=== PATIENT | female | born 1945 | race Caucasian/White ===

== ENCOUNTER 2018-02-07 13:08 | Inpatient (IN) | payer MEDICARE ==
[~2018-02-07] VITALS: Ht 172.7 cm; Wt 99.0 kg
[~2018-02-07 13:08] MED LIST: ANTI-DIARRHEAL PO; ASCO500 PO; ASPI81TA82 PO; CALCTAB32 PO; CIPR500T2 PO; FEXO180T PO; FLUC200T63 PO; GLIM2TAB PO; GLUCTAB OR; METR-1 PO; MONT10TA2 PO; PROT40TA PO; TAB-TAB PO; TRIL135C PO; VITA20003 PO
[2018-02-07 13:14] VITALS: BP 139/69; PULSE 89; RESP 16; TEMP 98.7; O2SAT 99
--- NOTE | 2018-02-07 13:39 | PD ---
HPI Chief Complaint: Injury Time Seen by Provider: 13:23 Travel History International Travel<30 days: No Contact w/Intl Traveler<30days: No Traveled to known affect area: No History of Present Illness HPI 72yo F with PMH of DM and ulcerative colitis presents to the ED with c/o left knee pain and right eyelid swelling and pain s/p trip and fall at 6am today. Pt was walking outside and it was dark and trip on uneven pavement landing first on her left knee and then hitting her right face on the floor. Denies any LOC, visual changes, chest pain, sob, n/v, abdominal pain, focal weakness or numbness. Up to date on tetanus. Denies any anticoagulation. PFSH Past Medical History Anxiety: No Depression: Yes Cancer: No Cardiovascular Problems: No Chemotherapy: No Diabetes: Yes (type 2) Endocrine: Yes Genitourinary: No Hepatitis: No Hiatal Hernia: No Immune Disorder: No Musculoskeletal: No Neurologic: No Psychiatric: Yes Reproductive: No Respiratory: No Radiation Therapy: No Thyroid Disease: No ?: Not Past Surgical History Abdominal Surgery: Yes (COLECTOMY 2000) Eye Surgery: Yes (CATARACT LENS IMPLANTS BOTH EYES) Pacemaker: No Other Surgery: Yes Social History Alcohol Use: Yes (RARELY) Tobacco Use: No Substance Use: No Allergies-Medications (Allergen,Severity, Reaction): Coded Allergies: adhesive (Unverified Allergy, Severe, Rash, 02/07/18) ADHESIVE TAPE ALLERGY, USE PAPER TAPE ONLY Reported Meds & Prescriptions Reported Meds & Active Scripts Active Reported Metformin (Metformin HCl) 1,000 Mg Tab 1,000 Mg PO BIDPC Trulicity Inj (Dulaglutide Inj) 0.75 Mg/0.5 Ml Pen 0.75 Mg SQ Q7D Januvia (Sitagliptin Phosphate) 25 Mg Tab 25 Mg PO DAILY Review of Systems Except as stated in HPI: all other systems reviewed are Neg Physical Exam Narrative GENERAL: 72yo F in mild distress. SKIN: Focused skin assessment warm/dry. HEAD: Atraumatic. Normocephalic. EYES: Pupils equal and round at 3mm bilaterally. EOMI. Right eye: +Marked edema and ecchymoses upper eyelid. ENT: No nasal bleeding or discharge. Mucous membranes pink and moist. NECK: No midline ttp cervical spine. CARDIOVASCULAR: Regular rate and rhythm. No murmur appreciated. RESPIRATORY: No accessory muscle use. Clear to auscultation. Breath sounds equal bilaterally. GASTROINTESTINAL: Abdomen soft, non-tender, nondistended. No rebound tenderness or guarding. MUSCULOSKELETAL: Left knee: +TTP medial knee. +Ecchymoses on knee, no open wound. Able to fully flex and extend. Distal pulses intact. Sensation intact. NEUROLOGICAL: Awake and alert. No obvious cranial nerve deficits. Motor grossly within normal limits. Normal speech. PSYCHIATRIC: Appropriate mood and affect; insight and judgment normal. Data Data Last Documented VS Vital Signs Date Time Temp Pulse Resp B/P (MAP) Pulse Ox O2 Delivery O2 Flow Rate FiO2 02/07/18 14:27 86 16 131/66 (87) 97 Room Air 02/07/18 13:[address] Brain W/O Iv Contrast(Rout) (02/07/18 ) Ct Facial Bones W/O Iv Cont (02/07/18 ) Knee, Ltd (1 Or 2vws) (02/07/18 ) Acetaminophen (Tylenol) (02/07/18 13:45) Lorazepam (Ativan) (02/07/18 14:30) Complete Blood Count With Diff (02/07/18 14:32) Basic Metabolic Panel (Bmp) (02/07/18 14:32) Prothrombin Time / Inr (Pt) (02/07/18 14:32) Act Partial Throm Time (Ptt) (02/07/18 14:32) Type And Screen (02/07/18 14:32) Ct Knee W/O Contrast (02/07/18 ) Femur (Ap & Lat/2vws) (02/07/18 ) Consult Orthopedic (02/07/18 ) ^ Knee Immobilizer (02/07/18 15:53) Urinary Catheter Insert/Apply (02/07/18 15:53) Labs Laboratory Tests Test 02/07/18 15:02 White Blood Count 9.8 TH/MM3 Red Blood Count 4.49 MIL/MM3 Hemoglobin 13.3 GM/DL Hematocrit 40.5 % Mean Corpuscular Volume 90.1 FL Mean Corpuscular Hemoglobin 29.5 PG Mean Corpuscular Hemoglobin Concent 32.7 % Red Cell Distribution Width 12.6 % Platelet Count 237 TH/MM3 Mean Platelet Volume 7.8 FL Neutrophils (%) (Auto) 81.2 % Lymphocytes (%) (Auto) 8.8 % Monocytes (%) (Auto) 7.5 % Eosinophils (%) (Auto) 0.2 % Basophils (%) (Auto) 2.3 % Neutrophils # (Auto) 8.0 TH/MM3 Lymphocytes # (Auto) 0.9 TH/MM3 Monocytes # (Auto) 0.7 TH/MM3 Eosinophils # (Auto) 0.0 TH/MM3 Basophils # (Auto) 0.2 TH/MM3 CBC Comment DIFF FINAL Differential Comment Prothrombin Time 10.1 SEC Prothromb Time International Ratio 1.0 RATIO Activated Partial Thromboplast Time 22.5 SEC Blood Urea Nitrogen 37 MG/DL Creatinine 1.20 MG/DL Random Glucose 147 MG/DL Calcium Level 9.5 MG/DL Sodium Level 135 MEQ/L Potassium Level MEQ/L Chloride Level 103 MEQ/L Carbon Dioxide Level 25.3 MEQ/L Anion Gap 7 MEQ/L Estimat Glomerular Filtration Rate 44 ML/MIN MDM Medical Decision Making Medical Screen Exam Complete: Yes Emergency Medical Condition: Yes Differential Diagnosis Fracture vs. contusion vs. ICH Narrative Course 72yo F here with left knee pain and right facial pain s/p trip and fall on left knee today. Xray showed acute nondisplaced distal femur fracture with intra- articular extension. Discussed with Dr. Swain who said pt does need surgery and can be transfer to [facility] for surgery but surgery likely wont happen until Thursday. Recommend that I also order a CT knee and dedicated femur xray. Pt lives by herself and unable to ambulate so will transfer pt to [facility] for surgery. CT facial showed right periorbital soft tissue swelling. No fractures. CT brain showed no acute intracranial abnormality. Pt given ativan for CT scan because she is claustrophobic and said her pain is controlled currently after ativan. Labs reviewed, no leukocytosis. H/H normal. BUN/creatinine elevated at 37/1.2, will give NS IVF. Glucose 147. Left knee place in knee immobilizer for now. Discussed with Dr. Nur and accepted to his service. Pt to be transferred to [facility]. Diagnosis Primary Impression: Fracture, femur, distal Qualified Codes: S72.402A - Unspecified fracture of lower end of left femur, initial encounter for closed fracture Admitting Information Admitting Physician Requests: it Kylah Sterling DO February 07, 2018 13:39
[2018-02-07] MEDS ORDERED: ACETAMINOPHEN 500 MG CPLT PO ONE (13:45)
[2018-02-07] MEDS ORDERED: DULA10IN SQ (14:05)
[2018-02-07] MEDS ORDERED: SITA25 PO (14:05)
[2018-02-07] MEDS ORDERED: METF1000 PO (14:05)
[2018-02-07 14:27] VITALS: BP 131/66; PULSE 86; RESP 16; O2SAT 97
[2018-02-07] MEDS ORDERED: LORazepam 1 MG TAB PO ONE (14:30)
--- NOTE | 2018-02-07 14:34 | RADRPT ---
EXAM DATE: 02/07/2018 2:22 PM EDT AGE/SEX: 72 years / Female INDICATIONS: Fell this AM, has left knee pain CLINICAL DATA: This is the patient's initial encounter. Patient reports that signs and symptoms have been present for 1 day and indicates a pain score of 9/10. MEDICAL/SURGICAL HISTORY: None. None. COMPARISON: . FINDINGS: 2 views of left knee show osteopenia. There is an acute fracture involving the distal femur. The frac ture is slightly oblique relative to the long axis of the bone. It traverses the lateral femoral cond yle and terminates at the intercondylar notch. No significant angulation or distraction. Proximal tib ia and fibula are intact. Small joint effusion. CONCLUSION: Acute nondisplaced distal femoral fracture as detailed above. Intra-articular extension. Electronically signed by: Cesario Harrington MD 02/07/2018 2:33 PM EDT
--- NOTE | 2018-02-07 15:04 | RADRPT ---
EXAM DATE: 02/07/2018 2:55 PM EDT AGE/SEX: 72 years / Female INDICATIONS: Tripped and fell. Right orbital hematoma. CLINICAL DATA: This is the patient's initial encounter. Patient reports that signs and symptoms have been present for 1 day and indicates a pain score of 4/10. MEDICAL/SURGICAL HISTORY: . Diabetes. None. RADIATION DOSE: 60.55 CTDI (mGy) COMPARISON: None. TECHNIQUE: CT of the head without contrast. Using automated exposure control and adjustment of the mA and/or kV according to patient size, radiation dose was kept as low as reasonably achievable to ob tain optimal diagnostic quality images. FINDINGS: Cerebrum: The ventricles are normal for age. No evidence of midline shift, mass lesion, hemorrhage or acute infarction. No extraaxial fluid collections are seen. Posterior Fossa: The cerebellum and brainstem are intact. The 4th ventricle is midline. The cerebe llopontine angle is unremarkable. Extracranial: The visualized portion of the orbits is intact. See the CT of the facial bones reporte d separately. Skull: The calvaria is intact. No evidence of skull fracture. CONCLUSION: 1. See the CT of the facial bones report separately. 2. No acute intracranial abnormality. Electronically signed by: Cesario Harrington MD 02/07/2018 3:02 PM EDT
--- NOTE | 2018-02-07 15:05 | RADRPT ---
EXAM DATE: 02/07/2018 2:57 PM EDT AGE/SEX: 72 years / Female INDICATIONS: Tripped and fell. Right orbital hematoma. CLINICAL DATA: This is the patient's initial encounter. Patient reports that signs and symptoms have been present for 1 day and indicates a pain score of 5/10. MEDICAL/SURGICAL HISTORY: . Diabetes. None. RADIATION DOSE: 25.69 CTDI (mGy) COMPARISON: . TECHNIQUE: Contiguous images in the axial and coronal planes were obtained using helical multirow de tector technique. Using automated exposure control and adjustment of the mA and/or kV according to p atient size, radiation dose was kept as low as reasonably achievable to obtain optimal diagnostic natalie lity images. FINDINGS: Orbits: The orbital and infraorbital osseous structures are intact. The retroconal structures have a normal configuration. No radiopaque foreign bodies are seen. Globes are intact. Nasal Bone: The nasal bone and maxillary spine are intact. Zygomatic Arches: Symmetric without evidence of fracture. Sinuses: The maxillary, ethmoid, and frontal sinuses are intact. No air-fluid levels seen. Nasal Cavity: The nasal septum is intact and midline. The lacrimal ducts are intact. Soft Tissues: No radiopaque foreign bodies seen. Right periorbital soft tissue swelling. This is pre septal in nature.. Intracranial: No intracranial air seen. Cribriform Plate: Grossly intact. CONCLUSION: 1. Right periorbital soft tissue swelling. No fractures. Electronically signed by: Cesario Harrington MD 02/07/2018 3:03 PM EDT
[2018-02-07 15:17] LABS: BASOPHIL # 0.2 TH/MM3 (0-0.2); BASOPHIL % 2.3 % (0.0-2.0); EOSINOPHIL % 0.2 % (0.0-4.0); HEMATOCRIT 40.5 % (35.0-46.0); HEMOGLOBIN 13.3 GM/DL (11.6-15.3); LYMPH % 8.8 % (9.0-44.0); LYMPHOCYTE # 0.9 TH/MM3 (1.0-4.8); MEAN CELL VOLUME 90.1 FL (80.0-100.0); MEAN CORPUSCULAR HEMOGLOBIN 29.5 PG (27.0-34.0); MEAN CORPUSCULAR HGB CONC 32.7 % (32.0-36.0); MEAN PLATELET VOLUME 7.8 FL (7.0-11.0); MONO % 7.5 % (0.0-8.0); MONOCYTE # 0.7 TH/MM3 (0-0.9); NEUT % 81.2 % (16.0-70.0); PLATELET COUNT 237 TH/MM3 (150-450); RED BLOOD COUNT 4.49 MIL/MM3 (4.00-5.30); RED CELL DISTRIBUTION WIDTH 12.6 % (11.6-17.2); WHITE BLOOD COUNT 9.8 TH/MM3 (4.0-11.0)
--- NOTE | 2018-02-07 15:29 | RADRPT ---
EXAM DATE: 02/07/2018 3:23 PM EDT AGE/SEX: 72 years / Female INDICATIONS: Fell today, left knee area pain CLINICAL DATA: This is the patient's subsequent encounter. Patient reports that signs and symptoms h ave been present for 1 day and indicates a pain score of 7/10. MEDICAL/SURGICAL HISTORY: None. None. COMPARISON: Left knee x-ray 02/07/2018. FINDINGS: The proximal femur is intact. There is an acute comminuted fracture involving the distal femoral meta physis. This extends through the intercondylar notch. The fracture line is slightly oblique relative to the long axis of the bone. It exits the lateral cortex of the femoral metaphysis. No significant a ngulation or distraction. CONCLUSION: Acute comminuted distal femoral fracture as detailed above. Electronically signed by: Cesario Harrington MD 02/07/2018 3:28 PM EDT
[2018-02-07 15:31] LABS: CALCIUM 9.5 MG/DL (8.5-10.1)
[2018-02-07 15:32] LABS: BICARBONATE 25.3 MEQ/L (21.0-32.0)
[2018-02-07 15:35] LABS: CREATININE 1.2 MG/DL (0.50-1.00)
[2018-02-07 15:38] LABS: PROTHROMBIN TIME - PATIENT 10.1 SEC (9.8-11.6)
--- NOTE | 2018-02-07 15:51 | RADRPT ---
EXAM DATE: 02/07/2018 3:34 PM EDT AGE/SEX: 72 years / Female INDICATIONS: tripped and fell. Left knee pain. Abnormal x-ray. CLINICAL DATA: This is the patient's initial encounter. Patient reports that signs and symptoms have been present for 1 day and indicates a pain score of 7/10. MEDICAL/SURGICAL HISTORY: . Diabetes. None. RADIATION DOSE: 22.07 CTDI (mGy) COMPARISON: Knee x-ray 02/07/2018. TECHNIQUE: Multiple contiguous axial images were acquired using a multirow detector CT scanner witho ut contrast. Multiplanar reconstruction was performed in the sagittal and coronal planes. Using aut omated exposure control and adjustment of the mA and/or kV according to patient size, radiation dose was kept as low as reasonably achievable to obtain optimal diagnostic quality images. FINDINGS: Acute comminuted nondisplaced fracture involving the distal femur. The fracture is perpendicular to t he long axis of the bone. It extends from the lateral cortex through the intercondylar notch. The com minuted fashion is secondary to a small lateral cortical margin fragment. No angulation or distractio n. The fracture does extend through the articular surface of the patellofemoral joint. It also extend s thru the intercondylar notch. A joint effusion is noted. Proximal tibia and fibula are intact. Adan lla is intact. CONCLUSION: 1. Acute distal femoral fracture as detailed above. Electronically signed by: Cesario Harrington MD 02/07/2018 3:50 PM EDT
[2018-02-07] MEDS ORDERED: ACETAMINOPHEN 325 MG TAB PO PRN ×2 (16:00)
[2018-02-07] MEDS ORDERED: GLUCAGON 1 MG/ML VIAL OTHER PRN (16:00)
[2018-02-07] MEDS ORDERED: hydrALAZINE HCL 25 MG TAB PO PRN (16:00)
[2018-02-07] MEDS ORDERED: NALOXONE HCL 0.4 MG/ML AMP IV PUSH PRN (16:00)
[2018-02-07] MEDS ORDERED: ACETAMINOPHEN/HYDROcodone 325 MG/5 MG TAB PO PRN (16:00)
[2018-02-07] MEDS ORDERED: SODIUM CHLOR 0.9% 1000 ML INJ 1,000 ML IV SCH (16:00)
[2018-02-07] MEDS ORDERED: MAGNESIUM HYDROXIDE SUSP 30 ML CUP PO PRN (16:00)
[2018-02-07] MEDS ORDERED: RESP: ALBUTEROL 2.5 MG/IPRATROPIUM 0.5 MG NEB (PRN) NEB (16:00)
[2018-02-07] MEDS ORDERED: DEXTROSE 50% IN WATER 50 ML VIAL(D50) IV PUSH PRN (16:00)
[2018-02-07] MEDS ORDERED: SODIUM CHLOR 0.9% 1000 ML INJ 1,000 ML IV ONE (16:00)
--- NOTE | 2018-02-07 17:12 | HHI.HP ---
[facility] Sammi Zimmerman MD Admission Diagnosis Left distal femur with intra-articular involvement Diagnoses: (1) Fracture, femur, distal (2) Periorbital hematoma of right eye (3) Diabetes mellitus, type II Chief Complaint: Left knee pain Travel History International Travel<30 Days: No Contact w/Intl Traveler <30 Da: No Traveled to Known Affected Are: No History of Present Illness 72-year-old female with past medical history of diabetes type 2, chronic kidney disease was brought to the ED for evaluation of left knee pain status post mechanical fall. Patient states, earlier this morning around 5:30 AM as she was making her morning walk she tripped and fell on asphalt l landing on her left knee and in the process hitting her right knee as well as the right side of her face including the right eye without any head trauma or loss of consciousness. Patient states, she immediately felt severe left knee pain which was rated over 10 in intensity and was unable to stand up and walk back into her house. She had to crawl. She reported that initially she did not have any swelling to that left knee. Over the course of several hours she started noticing swelling of her left knee with severe throbbing pain, for which she is taking several ibuprofen. She was then taken to the ED around 12 PM where imaging study revealed acute distal femoral fracture. Review of Systems Except as stated in HPI: all other systems reviewed are Neg Past Family Social History Past Medical History Diabetes Chronic kidney disease Dyslipidemia Chronic anemia Past Surgical History Abdominal Surgery: Yes (COLECTOMY 2000) Eye Surgery: Yes (CATARACT LENS IMPLANTS BOTH EYES) Other Surgery: Yes Reported Medications Metformin (Metformin HCl) 1,000 Mg Tab 1,000 Mg PO BIDPC Trulicity Inj (Dulaglutide Inj) 0.75 Mg/0.5 Ml Pen 0.75 Mg SQ Q7D Januvia (Sitagliptin Phosphate) 25 Mg Tab 25 Mg PO DAILY Allergies: Coded Allergies: adhesive (Unverified Allergy, Severe, Rash, 02/07/18) ADHESIVE TAPE ALLERGY, USE PAPER TAPE ONLY Family History Diabetes, coronary disease, hypertension Social History Alcohol Use: Yes (RARELY) Tobacco Use: No Substance Use: No Physical Exam Vital Signs Vital Signs Date Time Temp Pulse Resp B/P (MAP) Pulse Ox O2 Delivery O2 Flow Rate FiO2 02/07/18 14:27 86 16 131/66 (87) 97 Room Air 02/07/18 13:32 18 98 Room Air 02/07/18 13:14 98.7 89 16 139/69 (92) 99 Physical Exam GENERAL: This is a well-nourished, well-developed patient, in no apparent distress. SKIN: No rashes, ecchymoses or lesions. Cool and dry. HEAD: Atraumatic. Normocephalic. No temporal or scalp tenderness. EYES: Left Pupil equal round and reactive. Extraocular motions intact. No scleral icterus.Right eye: +Marked edema and ecchymoses upper eyelid. ENT: Nose without bleeding, purulent drainage or septal hematoma. Throat without erythema, tonsillar hypertrophy or exudate. Uvula midline. Airway patent. NECK: Trachea midline. No JVD or lymphadenopathy. Supple, nontender, no meningeal signs. CARDIOVASCULAR: Regular rate and rhythm without murmurs, gallops, or rubs. RESPIRATORY: Clear to auscultation. Breath sounds equal bilaterally. No wheezes , rales, or rhonchi. GASTROINTESTINAL: Abdomen soft, non-tender, nondistended. No hepato-splenomegaly , or palpable masses. No guarding. MUSCULOSKELETAL: Extremities without clubbing, cyanosis, or edema. No joint tenderness, effusion, or edema noted. No calf tenderness. Left knee: +TTP medial knee. NEUROLOGICAL: Awake and alert. Cranial nerves II through XII intact. Motor and sensory grossly within normal limits. Five out of 5 muscle strength in all muscle groups. Normal speech. Laboratory Laboratory Tests Test 02/07/18 15:02 White Blood Count 9.8 Red Blood Count 4.49 Hemoglobin 13.3 Hematocrit 40.5 Mean Corpuscular Volume 90.1 Mean Corpuscular Hemoglobin 29.5 Mean Corpuscular Hemoglobin Concent 32.7 Red Cell Distribution Width 12.6 Platelet Count 237 Mean Platelet Volume 7.8 Neutrophils (%) (Auto) 81.2 Lymphocytes (%) (Auto) 8.8 Monocytes (%) (Auto) 7.5 Eosinophils (%) (Auto) 0.2 Basophils (%) (Auto) 2.3 Neutrophils # (Auto) 8.0 Lymphocytes # (Auto) 0.9 Monocytes # (Auto) 0.7 Eosinophils # (Auto) 0.0 Basophils # (Auto) 0.2 CBC Comment DIFF FINAL Differential Comment Prothrombin Time 10.1 Prothromb Time International Ratio 1.0 Activated Partial Thromboplast Time 22.5 Blood Urea Nitrogen 37 Creatinine 1.20 Random Glucose 147 Calcium Level 9.5 Sodium Level 135 Potassium Level 4.9 Chloride Level 103 Carbon Dioxide Level 25.3 Anion Gap 7 Estimat Glomerular Filtration Rate 44 Result Diagram: 02/07/18 1502 02/07/18 1502 Imaging Last Impressions Maxillofacial CT 02/07/18 0000 Signed Impressions: CONCLUSION: 1. Right periorbital soft tissue swelling. No fractures. Lower Extremity CT 02/07/18 0000 Signed Impressions: CONCLUSION: 1. Acute distal femoral fracture as detailed above. Knee X-Ray 02/07/18 0000 Signed Impressions: CONCLUSION: Acute nondisplaced distal femoral fracture as detailed above. Intra-articular e xtension. Head CT 02/07/18 0000 Signed Impressions: CONCLUSION: 1. See the CT of the facial bones report separately. 2. No acute intracranial abnormality. Femur X-Ray 02/07/18 0000 Signed Impressions: CONCLUSION: Acute comminuted distal femoral fracture as detailed above. Septic Shock Reassessment Septic shock perfusion: reassessment completed Caprini VTE Risk Assessment Caprini VTE Risk Assessment: Mod/High Risk (score >= 2) VTE Pharm Contraindication: hematoma Caprini Risk Assessment Model Point Value = 1 Point Value = 2 Point Value = 3 Point Value = 5 Age 41-60 Minor surgery BMI > 25 kg/m2 Swollen legs Varicose veins or History of unexplained or recurrent spontaneous Oral contraceptives or hormone replacement Sepsis (< 1 month) Serious lung disease, including pneumonia (< 1 month) Abnormal pulmonary function Acute myocardial infarction Congestive heart failure (< 1 month) History of inflammatory bowel disease Medical patient at bed rest Age 61-74 Arthroscopic surgery Major open surgery (> 45 min) Laparoscopic surgery (> 45 min) Malignancy Confined to bed (> 72 hours) Immobilizing plaster cast Central venous access Age >= 75 History of VTE Family history of VTE Factor V Leiden Prothrombin [id number] Lupus anticoagulant Anticardiolipin antibodies Elevated serum homocysteine Heparin-induced thrombocytopenia Other congenital or acquired thrombophilia Stroke (< 1 month) Elective arthroplasty Hip, pelvis, or leg fracture Acute spinal cord injury (< 1 month) Prophylaxis Regimen Total Risk Factor Score Risk Level Prophylaxis Regimen 0-1 Low Early ambulation 2 Moderate Order ONE of the following: *Sequential Compression Device (SCD) *Heparin 5000 units SQ BID 3-4 Higher Order ONE of the following medications: *Heparin 5000 units SQ TID *Enoxaparin/Lovenox 40 mg SQ daily (WT < 150 kg, CrCl > 30 mL/min) *Enoxaparin/Lovenox 30 mg SQ daily (WT < 150 kg, CrCl > 10-29 mL/min) *Enoxaparin/Lovenox 30 mg SQ BID (WT < 150 kg, CrCl > 30 mL/min) AND/OR *Sequential Compression Device (SCD) 5 or more Highest Order ONE of the following medications: *Heparin 5000 units SQ TID (Preferred with Epidurals) *Enoxaparin/Lovenox 40 mg SQ daily (WT < 150 kg, CrCl > 30 mL/min) *Enoxaparin/Lovenox 30 mg SQ daily (WT < 150 kg, CrCl > 10-29 mL/min) *Enoxaparin/Lovenox 30 mg SQ BID (WT < 150 kg, CrCl > 30 mL/min) AND *Sequential Compression Device (SCD) Assessment and Plan Problem List: (1) Fracture, femur, distal ICD Code: S72.409A - Unspecified fracture of lower end of unspecified femur, initial encounter for closed fracture Status: Acute (2) Periorbital hematoma of right eye ICD Code: H05.231 - Hemorrhage of right orbit (3) Diabetes mellitus, type II ICD Code: E11.9 - Type 2 diabetes mellitus without complications Assessment and Plan 72-year-old female with Fracture, femur, distal Status post mechanical fall Lower extremity CT noted and reviewed by me with finding of acute distal femur fracture Female x-ray noted and reviewed by me with finding of acute comminuted distal femoral fracture The x-ray reviewed by me with finding of acute nondisplaced distal humeral fracture Orthopedic surgery has been consulted for evaluation for knee repair, likely next Thursday, February 09, 2018 DVT prophylaxis postprocedure per orthopedic surgery PT consult postprocedure Pain management accordingly Periorbital hematoma of right eye Maxillofacial CT noted and reviewed by me with finding of right periorbital soft tissue swelling, no fracture Head CT noted and reviewed by me without any intracranial abnormality Acute superimposed on chronic kidney disease stage III Gentle IV fluid hydration, and avoid all nephrotoxic drug. Monitor BUN and creatinine Diabetes type 2 Hold all oral hypoglycemic agents Start insulin sliding scale with fingerstick blood glucose monitoring DVT prophylaxis: SCDs to left lower extremity Code Status Full code Discussed Condition With Patient, friend, ED physician Physician Certification 2 Midnight Certification Type: Admission for Inpatient Services Order for Inpatient Services The services are ordered in accordance with Medicare regulations or non- Medicare payer requirements, as applicable. In the case of services not specified as inpatient-only, they are appropriately provided as inpatient services in accordance with the 2-midnight benchmark. Estimated LOS (days): 2 days is the estimated time the patient will need to remain in the hospital, assuming treatment plan goals are met and no additional complications. Post-Hospital Plan: Not yet determined Problem Qualifiers (1) Fracture, femur, distal: Qualified Codes: S72.402A - Unspecified fracture of lower end of left femur, initial encounter for closed fracture Ajit Nur MD February 07, 2018 17:12
[2018-02-07 18:11] VITALS: BP 141/77
[2018-02-07] MEDS: ACETAMINOPHEN/HYDROcodone 325 MG/7.5 MG TAB PO PRN (20:00)
[2018-02-07] MEDS: SODIUM CHLORIDE 0.9% FLUSH 10 ML FLUSH IV FLUSH SCH (20:02)
[2018-02-07] MEDS: INSULIN ASPART SUPPLEMENTAL SCALE SQ SCH (20:02)
[2018-02-07 21:20] VITALS: BP 160/73; PULSE 81; RESP 17; TEMP 97.4; O2SAT 100
[2018-02-07] MEDS: DIPHENOXYLATE/ATROPINE 2.5 MG/0.025 MG TAB PO PRN (23:04)
[2018-02-07] MEDS ORDERED: CHLORHEXIDINE GLUCONATE 2 % 1 PACK (2 CLOTHS) TOPICAL PRN (23:30)
[2018-02-07] MEDS ORDERED: LACTATED RINGER'S 1000 ML IV PRN (23:30)
[2018-02-07] MEDS ORDERED: SODIUM CHLORID 0.9% 500 ML IV PRN (23:30)
[2018-02-07] MEDS ORDERED: POVIDONE IODINE 5% (ANTISEPSIS KIT) 4 APPLICATIONS EACH NARE PRN (23:30)
[2018-02-08 00:35] VITALS: BP 121/57; PULSE 83; RESP 17; TEMP 98.7; O2SAT 98
[2018-02-08] MEDS: ACETAMINOPHEN/HYDROcodone 325 MG/7.5 MG TAB PO PRN ×5 (03:10→22:46)
[2018-02-08 06:59] LABS: AUTOMATED NEUTROPHIL # 3.4 TH/MM3 (1.8-7.7); BASOPHIL % 0.4 % (0.0-2.0); EOSINOPHIL % 0.5 % (0.0-4.0); HEMATOCRIT 34.3 % (35.0-46.0); HEMOGLOBIN 11.6 GM/DL (11.6-15.3); LYMPH % 16.6 % (9.0-44.0); LYMPHOCYTE # 0.8 TH/MM3 (1.0-4.8); MEAN CELL VOLUME 90.4 FL (80.0-100.0); MEAN CORPUSCULAR HEMOGLOBIN 30.6 PG (27.0-34.0); MEAN CORPUSCULAR HGB CONC 33.9 % (32.0-36.0); MEAN PLATELET VOLUME 7.7 FL (7.0-11.0); MONOCYTE # 0.8 TH/MM3 (0-0.9); NEUT % 67.5 % (16.0-70.0); PLATELET COUNT 195 TH/MM3 (150-450); RED CELL DISTRIBUTION WIDTH 13.1 % (11.6-17.2); WHITE BLOOD COUNT 5.1 TH/MM3 (4.0-11.0)
[2018-02-08 07:14] LABS: AST (GOT) 12 U/L (15-37); BICARBONATE 26.8 MEQ/L (21.0-32.0); BLOOD UREA NITROGEN 31 MG/DL (7-18); CALCIUM 8.4 MG/DL (8.5-10.1); CHLORIDE 106 MEQ/L (98-107); CREATININE 0.93 MG/DL (0.50-1.00); GLOMERULAR FILTRATION RATE 59 ML/MIN (>89); GLUCOSE,RANDOM 122 MG/DL (74-106); SODIUM (NA) 141 MEQ/L (136-145)
[2018-02-08 07:15] LABS: ALT (GPT) 21 U/L (10-53)
[2018-02-08 07:17] LABS: ALKALINE PHOSPHATASE 63 U/L (45-117); TOTAL BILIRUBIN ADULT 0.7 MG/DL (0.2-1.0); TOTAL PROTEIN 6.8 GM/DL (6.4-8.2)
--- NOTE | 2018-02-08 07:53 | EKG ---
Date Performed: 02/08/2018 Time Performed: 04:37:16 PTAGE: 72 years EKG: Sinus rhythm Anterior T wave changes are nonspecific Low QRS voltages in precordial leads Borderline ECG PREVIOUS TRACING : 04/01/2014 17.10 Compared to previous tracing, anteroseptal T wave inversion is no longer present. DOCTOR: Jem Cole Interpretating Date/Time 02/08/2018 07:51:29
[2018-02-08 08:00] VITALS: BP 132/63; PULSE 85; RESP 17; TEMP 98.5; O2SAT 97
[2018-02-08] MEDS: INSULIN ASPART SUPPLEMENTAL SCALE SQ SCH ×4 (08:00→20:16)
[2018-02-08] MEDS: SODIUM CHLORIDE 0.9% FLUSH 10 ML FLUSH IV FLUSH SCH ×2 (09:00→20:16)
--- NOTE | 2018-02-08 10:47 | PD.CONS ---
HPI Service Orthopedic Surgeons Consult Requested By Reason for Consult Left distal femur fracture Primary Care Physician Sammi Zimmerman MD Admission Diagnosis Left distal femur with intra-articular involvement Diagnoses: (1) Fracture, femur, distal Diagnosis: Principal (2) Periorbital hematoma of right eye Diagnosis: Secondary (3) Diabetes mellitus, type II Diagnosis: Secondary Chief Complaint: Left knee pain History of Present Illness 72-year-old female with past medical history of diabetes type 2, chronic kidney disease was brought to the ED for evaluation of left knee pain status post mechanical fall. Patient states she was making her morning walk she tripped and fell on asphalt, landing on her left knee and in the process hitting her right knee as well as the right side of her face without any head trauma or loss of consciousness. Patient states she immediately felt severe left knee pain and was unable to stand up and walk back into her house. She had to crawl. Over the course of several hours she started noticing swelling of her left knee with severe throbbing pain, for which she is taking several ibuprofen. She states she does have some mild right knee discomfort. She also has some bruising about her right hand. She denies any significant numbness or tingling. Review of Systems Constitutional: DENIES: Fever Endocrine: DENIES: Heat/cold intolerance Eyes: DENIES: Blurred vision Ears, nose, mouth, throat: DENIES: Throat pain Respiratory: DENIES: Cough Cardiovascular: DENIES: Chest pain Gastrointestinal: DENIES: Abdominal pain Genitourinary: DENIES: Urinary incontinence Musculoskeletal: COMPLAINS OF: Joint pain, Muscle aches, Joint Swelling Integumentary: DENIES: Rash Hematologic/lymphatic: COMPLAINS OF: Bruising Immunologic/allergic: DENIES: Eczema Neurologic: DENIES: Abnormal gait Psychiatric: DENIES: Anxiety Past Family Social History Past Medical History Diabetes Chronic kidney disease Dyslipidemia Chronic anemia Past Surgical History Abdominal Surgery: Yes (COLECTOMY 2000) Eye Surgery: Yes (CATARACT LENS IMPLANTS BOTH EYES) Other Surgery: Yes Reported Medications See chart for full list. Denies blood thinner. Allergies: Coded Allergies: adhesive (Unverified Allergy, Severe, Rash, 02/07/18) ADHESIVE TAPE ALLERGY, USE PAPER TAPE ONLY Active Ordered Medications Current Medications Medications (Trade) Dose Ordered Sig/Taj Route Start Time Stop Time Status Last Admin Sodium Chloride 1,000 ml @ 70 mls/hr [id number] IV 02/07/18 16:00 02/07/18 16:00 (NS Flush) 2 ml UNSCH PRN IV FLUSH 02/07/18 16:00 (NS Flush) 2 ml BID IV FLUSH 02/07/18 21:00 (Tylenol) 650 mg Q4H PRN PO 02/07/18 16:00 (Tylenol) 650 mg Q6H PRN PO 02/07/18 16:00 ([place] 5-325 Mg) 1 tab Q4H PRN PO 02/07/18 16:00 ([place] 7.5-325 Mg) 1 tab Q4H PRN PO 02/07/18 16:00 02/08/18 09:33 (Narcan Inj) 0.4 mg UNSCH PRN IV PUSH 02/07/18 16:00 (Milk Of Magnesia Liq) 30 ml Q12H PRN PO 02/07/18 16:00 (D50w (Vial) Inj) 50 ml UNSCH PRN IV PUSH 02/07/18 16:00 (Glucagon Inj) 1 mg UNSCH PRN OTHER 02/07/18 16:00 (NovoLOG SUPPLEMENTAL SCALE) 1 ACHS SLIDING SCALE SQ 02/07/18 17:00 (Duoneb Neb) 1 ampule Q2HR NEB PRN NEB 02/07/18 16:00 (Apresoline) 25 mg Q8HR PRN PO 02/07/18 16:00 (Lomotil Tab) 2 tab Q6H PRN PO 02/07/18 17:45 02/07/18 23:04 Lactated Ringer's 1,000 ml @ 30 mls/hr Q24H PRN IV 02/07/18 23:30 02/10/18 23:29 Sodium Chloride 500 ml @ 30 mls/hr [id number] PRN IV 02/07/18 23:30 02/10/18 23:29 (Betadine 5% Antisepsis Kit) 1 applic FOOD SERVICE ORDER CLERK PRN EACH NARE 02/07/18 23:30 5/30/18 23:29 (Chlorhexidine 2% Cloth) 3 pack FOOD SERVICE ORDER CLERK PRN TOPICAL 02/07/18 23:30 02/10/18 23:29 Reported Meds & Active Scripts Active Reported Metformin (Metformin HCl) 1,000 Mg Tab 1,000 Mg PO BIDPC Trulicity Inj (Dulaglutide Inj) 0.75 Mg/0.5 Ml Pen 0.75 Mg SQ Q7D Januvia (Sitagliptin Phosphate) 25 Mg Tab 25 Mg PO DAILY Family History Diabetes, coronary disease, hypertension Social History Alcohol Use: Yes (RARELY) Tobacco Use: No Substance Use: No Physical Exam Vital Signs Vital Signs Date Time Temp Pulse Resp B/P (MAP) Pulse Ox O2 Delivery O2 Flow Rate FiO2 02/08/18 08:00 98.5 85 17 132/63 (86) 97 02/08/18 00:35 98.7 83 17 121/57 (78) 98 02/07/18 21:20 97.4 81 17 160/73 (102) 100 02/07/18 18:12 18 98 Room Air 02/07/18 18:11 80 18 141/77 (98) 98 02/07/18 14:27 86 16 131/66 (87) 97 Room Air 02/07/18 13:32 18 98 Room Air 02/07/18 13:14 98.7 89 16 139/69 (92) 99 Physical Exam Awake, alert, no acute distress Normocephalic Pupils equal No JVD Moist mucous membranes Nonlabored respirations Regular rate Soft nontender abdomen. J-pouch in place. Left lower extremity: Knee immobilizer in place. There is moderate edema about the lower thigh and knee. With significant tenderness palpation. Unable to assess range of motion due to pain. Patient is neurovascular intact distally with positive EHL, FHL, dorsiflexion and plantarflexion. Sensation is intact throughout. Brisk cap refill. Right lower extremity: Mild ecchymosis and swelling about the anterior knee with mild tenderness palpation. Patient allows full active range of motion of her hip and knee without significant discomfort. Patient is neurovascularly intact distally. Brisk cap refill. Right upper extremity: Mild ecchymosis and swelling about the dorsum of the wrist and hand. Mild tenderness palpation about this area. Patient demonstrates full passive and active range of motion of the shoulder, elbow and wrist without significant discomfort. Patient is neurovascularly intact distally. Radial pulses palpable. Left upper extremity: No significant tenderness palpation of visible deformities. Full active range of motion and strength throughout. Sensation is intact. Brisk cap refill. No rash Normal affect Laboratory Laboratory Tests Test 02/07/18 15:02 02/08/18 06:10 02/08/18 06:17 White Blood Count 9.8 5.1 Red Blood Count 4.49 3.80 Hemoglobin 13.3 11.6 Hematocrit 40.5 34.3 Mean Corpuscular Volume 90.1 90.4 Mean Corpuscular Hemoglobin 29.5 30.6 Mean Corpuscular Hemoglobin Concent 32.7 33.9 Red Cell Distribution Width 12.6 13.1 Platelet Count 237 195 Mean Platelet Volume 7.8 7.7 Neutrophils (%) (Auto) 81.2 67.5 Lymphocytes (%) (Auto) 8.8 16.6 Monocytes (%) (Auto) 7.5 15.0 Eosinophils (%) (Auto) 0.2 0.5 Basophils (%) (Auto) 2.3 0.4 Neutrophils # (Auto) 8.0 3.4 Lymphocytes # (Auto) 0.9 0.8 Monocytes # (Auto) 0.7 0.8 Eosinophils # (Auto) 0.0 0.0 Basophils # (Auto) 0.2 0.0 CBC Comment DIFF FINAL DIFF FINAL Differential Comment Prothrombin Time 10.1 Prothromb Time International Ratio 1.0 Activated Partial Thromboplast Time 22.5 Blood Urea Nitrogen 37 31 Creatinine 1.20 0.93 Random Glucose 147 122 Calcium Level 9.5 8.4 Sodium Level 135 141 Potassium Level 4.9 4.0 Chloride Level 103 106 Carbon Dioxide Level 25.3 26.8 Anion Gap 7 8 Estimat Glomerular Filtration Rate 44 59 Total Protein 6.8 Albumin 3.0 Alkaline Phosphatase 63 Aspartate Amino Transf (AST/SGOT) 12 Alanine Aminotransferase (ALT/SGPT) 21 Total Bilirubin 0.7 Result Diagram: 02/08/18 0617 02/08/18 0610 Imaging Last [address] 02/07/18 0000 Signed Impressions: CONCLUSION: 1. Right periorbital soft tissue swelling. No fractures. Lower Extremity CT 02/07/18 0000 Signed Impressions: CONCLUSION: 1. Acute distal femoral fracture as detailed above. Knee X-Ray 02/07/18 0000 Signed Impressions: CONCLUSION: Acute nondisplaced distal femoral fracture as detailed above. Intra-articular e xtension. Head CT 02/07/18 0000 Signed Impressions: CONCLUSION: 1. See the CT of the facial bones report separately. 2. No acute intracranial abnormality. Femur X-Ray 02/07/18 0000 Signed Impressions: CONCLUSION: Acute comminuted distal femoral fracture as detailed above. Assessment & Plan Assessment and Plan 72-year-old female with closed left distal femur fracture, intra-articular Options of management were discussed with the patient. Given her fracture is slightly displaced along with gapping at the joint surface, I recommended surgical intervention in the form of open reduction internal fixation of her left distal femur fracture. I discussed with the patient that likely this will be performed by my partner, Dr. Acosta tomorrow. At this time I will keep her in her knee immobilizer and nonweightbearing to the left lower extremity. Plan will be to have her n.p.o. after midnight for likely surgery tomorrow. Given the bruising around her right hand, I will obtain right hand radiographs to ensure there is no occult fracture. Becca Swain MD February 08, 2018 10:47
[2018-02-08 12:00] VITALS: BP 136/60; PULSE 71; RESP 18; TEMP 98.6; O2SAT 94
--- NOTE | 2018-02-08 13:10 | HHI.PR ---
Subjective Remarks Follow-up orthopedic injury. Complaining of knee pain. Objective Vitals Vital Signs Date Time Temp Pulse Resp B/P (MAP) Pulse Ox O2 Delivery O2 Flow Rate FiO2 02/08/18 12:00 98.6 71 18 136/60 (85) 94 02/08/18 08:00 98.5 85 17 132/63 (86) 97 02/08/18 00:35 98.7 83 17 121/57 (78) 98 02/07/18 21:20 97.4 81 17 160/73 (102) 100 02/07/18 18:12 18 98 Room Air 02/07/18 18:11 80 18 141/77 (98) 98 02/07/18 14:27 86 16 131/66 (87) 97 Room Air 02/07/18 13:32 18 98 Room Air 02/07/18 13:14 98.7 89 16 139/69 (92) 99 I/O 02/07/18 02/07/18 02/07/18 02/08/18 02/08/18 02/08/18 07:00 15:00 23:00 07:00 15:00 23:00 Intake Total 1000 ml 480 ml Output Total 125 ml 550 ml Balance 875 ml -70 ml Intake Oral 480 ml IV Total 1000 ml Output Urine Total 125 ml 550 ml # Bowel Movements 3 5 Result Diagram: 02/08/18 0617 02/08/18 0610 Imaging Last Impressions Maxillofacial CT 02/07/18 0000 Signed Impressions: CONCLUSION: 1. Right periorbital soft tissue swelling. No fractures. Lower Extremity CT 02/07/18 0000 Signed Impressions: CONCLUSION: 1. Acute distal femoral fracture as detailed above. Knee X-Ray 02/07/18 0000 Signed Impressions: CONCLUSION: Acute nondisplaced distal femoral fracture as detailed above. Intra-articular e xtension. Head CT 02/07/18 0000 Signed Impressions: CONCLUSION: 1. See the CT of the facial bones report separately. 2. No acute intracranial abnormality. Femur X-Ray 02/07/18 0000 Signed Impressions: CONCLUSION: Acute comminuted distal femoral fracture as detailed above. Objective Remarks GENERAL: This is a well-nourished, well-developed patient, in no apparent distress. SKIN: No rashes, ecchymoses or lesions. Cool and dry. EYES: Left Pupil equal round and reactive. Extraocular motions intact. No scleral icterus.Right eye: +Marked edema and ecchymoses upper eyelid. CARDIOVASCULAR: Regular rate and rhythm without murmurs, gallops, or rubs. RESPIRATORY: Clear to auscultation. Breath sounds equal bilaterally. No wheezes , rales, or rhonchi. GASTROINTESTINAL: Abdomen soft, non-tender, nondistended. No guarding. MUSCULOSKELETAL: Left lower extremity in a CKS. Right hand swelling and tenderness NEUROLOGICAL: Awake and alert. Cranial nerves II through XII intact. Motor and sensory grossly within normal limits. Five out of 5 muscle strength in all muscle groups. Normal speech. A/P Problem List: (1) Fracture, femur, distal ICD Code: S72.409A - Unspecified fracture of lower end of unspecified femur, initial encounter for closed fracture Status: Acute (2) Periorbital hematoma of right eye ICD Code: H05.231 - Hemorrhage of right orbit (3) Diabetes mellitus, type II ICD Code: E11.9 - Type 2 diabetes mellitus without complications Assessment and Plan 72-year-old female with Fracture, femur, distal Status post mechanical fall Orthopedic surgery has been consulted f DVT prophylaxis postprocedure per orthopedic surgery PT consult postprocedure Pain management accordingly Right hand swelling and pain. Follow-up x-ray Periorbital hematoma of right eye. Symptomatic treatment Acute superimposed on chronic kidney disease stage III. Improving Gentle IV fluid hydration, and avoid all nephrotoxic drug. Monitor BUN and creatinine Diabetes type 2 Hold all oral hypoglycemic agents Continue insulin sliding scale with fingerstick blood glucose monitoring Hyperlipidemia on statin DVT prophylaxis: SCDs to left lower extremity. Pharmacological prophylaxis per orthopedic surgery Problem Qualifiers (1) Fracture, femur, distal: Qualified Codes: S72.402A - Unspecified fracture of lower end of left femur, initial encounter for closed fracture Pierce Pruitt MD February 08, 2018 13:10
--- NOTE | 2018-02-08 14:46 | RADRPT ---
EXAM DATE: 02/08/2018 2:42 PM EDT AGE/SEX: 72 years / Female INDICATIONS: Fall. Right hand pain. CLINICAL DATA: This is the patient's initial encounter. Patient reports that signs and symptoms have been present for 1 day and indicates a pain score of 2/10. MEDICAL/SURGICAL HISTORY: . Patient fell yesterday injuring her right hand. . NONE COMPARISON: No prior [place] exams available for comparison. FINDINGS: Bony structures are intact and in normal alignment. Osseous density is normal. Soft tissues are unre markable. No radiopaque foreign bodies seen. CONCLUSION: No acute fracture Electronically signed by: Ajit Magallanes MD 02/08/2018 2:44 PM EDT
[2018-02-08 16:12] VITALS: BP 110/55; PULSE 73; RESP 18; TEMP 97.6; O2SAT 95
[2018-02-08 19:49] VITALS: BP 136/59; PULSE 84; RESP 17; TEMP 98.3; O2SAT 98
[2018-02-09 00:19] VITALS: BP 143/62; PULSE 84; RESP 18; TEMP 97.9; O2SAT 94
[2018-02-09 04:02] VITALS: BP 128/58; PULSE 66; RESP 18; TEMP 97.6; O2SAT 97
--- NOTE | 2018-02-09 06:44 | PD.ORT.PN ---
Subjective Subjective Remarks Slip and fall in the street. Left distal femur fracture and contusion to right orbit Objective Vitals Vital Signs Date Time Temp Pulse Resp B/P (MAP) Pulse Ox O2 Delivery O2 Flow Rate FiO2 02/09/18 04:02 97.6 66 18 128/58 (81) 97 02/09/18 00:19 97.9 84 18 143/62 (89) 94 02/08/18 19:49 98.3 84 17 136/59 (84) 98 02/08/18 16:12 97.6 73 18 110/55 (73) 95 02/08/18 12:00 98.6 71 18 136/60 (85) 94 02/08/18 08:00 98.5 85 17 132/63 (86) 97 I/O 02/08/18 02/08/18 02/08/18 02/09/18 02/09/18 02/09/18 07:00 15:00 23:00 07:00 15:00 23:00 Intake Total 480 ml 600 ml 240 ml Output Total 550 ml 400 ml 400 ml Balance -70 ml 200 ml -160 ml Intake Oral 480 ml 600 ml 240 ml Output Urine Total 550 ml 400 ml 400 ml # Bowel Movements 5 5 3 Result Diagram: 02/08/18 0617 02/08/18 0610 Imaging Last 72 hours Impressions Hand X-Ray 02/08/18 Signed Impressions: CONCLUSION: No acute fracture Maxillofacial CT 02/07/18 Signed Impressions: CONCLUSION: 1. Right periorbital soft tissue swelling. No fractures. Lower Extremity CT 02/07/18 Signed Impressions: CONCLUSION: 1. Acute distal femoral fracture as detailed above. Knee X-Ray 02/07/18 Signed Impressions: CONCLUSION: Acute nondisplaced distal femoral fracture as detailed above. Intra-articular e xtension. Head CT 02/07/18 Signed Impressions: CONCLUSION: 1. See the CT of the facial bones report separately. 2. No acute intracranial abnormality. Femur X-Ray 02/07/18 Signed Impressions: CONCLUSION: Acute comminuted distal femoral fracture as detailed above. Objective Remarks Bilateral upper extremities: Full range of motion and neurovascularly intact. Bruising over right hand and wrist Right lower extremity: Bruising of her knee with pain to palpation. No pain with movement of ankle or knee. Distally intact sensation good capillary refill Left lower extremity: No pain with hip motion. Pain to palpation of her distal femur. Distally intact sensation with good capillary refills with active dorsiflexion plantar flexion of foot. Assessment & Plan Assessment and Plan 72-year-old female with closed left distal femur fracture, intra-articular N.p.o. Surgery this morning for open reduction internal fixation of left distal femur Signed consents Alfonzo Epstein Jr. February 09, 2018 06:44
[2018-02-09] MEDS ORDERED: METOPROLOL TARTRATE 25 MG TAB PO PRN (07:15)
[2018-02-09] MEDS ORDERED: SODIUM CHLORID 0.9% 500 ML IV PRN (07:15)
[2018-02-09] MEDS ORDERED: POVIDONE IODINE 5% (ANTISEPSIS KIT) 4 APPLICATIONS EACH NARE PRN (07:15)
[2018-02-09] MEDS ORDERED: LACTATED RINGER'S 1000 ML IV PRN (07:15)
[2018-02-09] MEDS ORDERED: CHLORHEXIDINE GLUCONATE 2 % 1 PACK (2 CLOTHS) TOPICAL PRN (07:15)
[2018-02-09] MEDS ORDERED: MIDAZOLAM HCL 2 MG/2 ML VIAL ONE (07:25)
[2018-02-09] MEDS ORDERED: fentaNYL CITRATE 250 MCG/5 ML AMP ONE (07:25)
[2018-02-09] MEDS: INSULIN ASPART SUPPLEMENTAL SCALE SQ SCH ×4 (08:00→20:51)
[2018-02-09] MEDS ORDERED: GENTAMICIN SULFATE 80 MG/2 ML VIAL ONE ×3 (08:00→08:03)
[2018-02-09] MEDS ORDERED: ceFAZolin INJ 1,000 MG VIAL ONE (08:00)
[2018-02-09] MEDS ORDERED: VANCOMYCIN HCL 1000 MG VIAL ONE ×2 (08:01→08:03)
[2018-02-09] MEDS ORDERED: SODIUM CHLOR 0.9% 250 ML INJ 0 ML ONE (08:02)
[2018-02-09] MEDS ORDERED: ceFAZolin 2 GM PREMIX 50 ML ONE (08:03)
[2018-02-09] MEDS ORDERED: SODIUM CHLOR 0.9% 250 ML INJ 250 ML ONE (08:05)
[2018-02-09] MEDS: SODIUM CHLORIDE 0.9% FLUSH 10 ML FLUSH IV FLUSH SCH ×2 (09:00→20:51)
[2018-02-09] MEDS ORDERED: diphenhydrAMINE HCL 25 MG CAP PO PRN (10:00)
[2018-02-09] MEDS ORDERED: NALOXONE HCL 0.4 MG/ML AMP IV PUSH PRN (10:00)
[2018-02-09] MEDS ORDERED: MORPHINE SULFATE 4 MG/ML INJ IV PUSH PRN (10:00)
[2018-02-09] MEDS ORDERED: ONDANSETRON HCL 4 MG/2 ML VIAL IVP PRN (10:00)
[2018-02-09] MEDS ORDERED: NURSING INFORMATION XX PRN (10:00)
--- NOTE | 2018-02-09 10:10 | PD.OP ---
cc: Gallito Molina MD Operative Report Date of Surgery: February 09, 2018 Preoperative Diagnosis: Displaced left distal femur lateral condyle fracture Postoperative Diagnosis: Procedure: Open reduction fixation left distal femur fracture Anesthesia: General Surgeon: Gallito Molina Salesperson Neckties(s): RUFINO Tyler PA-C The surgical procedure was assisted by my physician minister assistant. My P.A. presence was necessary throughout this case for the manipulation and positioning of the surgical extremity. My P.A. was assisting me throughout the duration of this procedure. The skill set of a physician minister assistant was medically necessary to complete this procedure. During the surgical case the radiological technician was working at the back table and the physician minister assistant was directly assisting me. Operation and Findings: Implants used: Synthes Plan of activity: Nonweightbearing Details of procedure: Informed consent was obtained, operative site was marked. Patient was brought to the OR, placed on OR table, and given IV sedation with GETA. IV antibiotics were administered and timeout procedure was performed. The operative leg was prepped with alcohol, followed with Hibiclens, draped in usual sterile fashion. A timeout procedure was performed. The procedure began with a 6-inch incision over the lateral aspect of the left distal femur. Subcutaneous tissue was dissected with Bovie. Iliotibial band was split in line with fibers. At this point the fracture was visualized. Traction was applied. Fracture was manipulated. The fracture reduced into excellent alignment. Steinmann pins were used to hold provisional fixation. At this point attention was turned to plate placement. A 3.5 Synthes plate was selected and contoured to fit the distal femur. The plate was placed underneath the vastus lateralis. Steinmann pins were used to hold the plate to bone. Multiplanar fluoroscopy confirmed appropriate placement of plate. Multiple 3.5 cortical screws were now placed. Additional 3.5 cortical lag screws were placed across the fracture site. The plate was compressed to bone. Multiple locking screws were now placed in the distal segment of the distal femur. All screws were predrilled and premeasured for appropriate length. Final fluoroscopy revealed excellent alignment of fracture with well-placed hardware. Wound was thoroughly irrigated. Fascia was closed with #1 Vicryl. Subcutaneous tissue was closed with 3-0 Vicryl. Skin was closed with bret. Sterile dressings were applied. The patient was placed into a knee immobilizer and transferred to recovery in stable condition. Needle and sponge counts were correct. Gallito Molina MD February 09, 2018 10:10
[2018-02-09] MEDS ORDERED: DO NOT ADM ANY ANTICOAGULANT DRUGS PRN (10:18)
[2018-02-09] MEDS ORDERED: VITA500012 PO (10:21)
[2018-02-09] MEDS ORDERED: HYDR-3580 PO (10:21)
[2018-02-09] MEDS ORDERED: CALCTAB19 PO (10:21)
[2018-02-09] MEDS ORDERED: XARE10TA PO (10:21)
[2018-02-09] MEDS ORDERED: WALKER/ADULT/FO1 MIS (10:21)
[2018-02-09] MEDS ORDERED: WHEEMIS3 (10:21)
[2018-02-09] MEDS ORDERED: VITA2000 PO (10:21)
[2018-02-09] MEDS ORDERED: *morphine SULFATE 4 MG/ML PERIprocedure ONLY ONE (10:27)
[2018-02-09] MEDS ORDERED: Post-op Orders (for Pharmacy) XX ONE (10:30)
[2018-02-09] MEDS ORDERED: *morphine SULFATE 10 MG/ML PERIprocedure ONLY ONE (10:34)
[2018-02-09] MEDS ORDERED: *MEPERIDINE 25 MG INJ VIAL PERIprocedural Use ONLY ONE (10:37)
[2018-02-09 11:30] VITALS: BP 134/85; PULSE 89; RESP 18; TEMP 97.2; O2SAT 97
[2018-02-09] MEDS: CALCIUM/VITAMIN D 250 MG/125 U TAB PO SCH ×2 (11:50→17:51)
[2018-02-09] MEDS: ACETAMINOPHEN/HYDROcodone 325 MG/7.5 MG TAB PO PRN ×2 (11:50→17:50)
[2018-02-09] MEDS ORDERED: LIDOCAINE HCL 1% PF 5 ML SYRINGE OTHER ONE (12:00)
[2018-02-09] MEDS ORDERED: PROPOFOL 200 MG/20 ML AMP IV ONE (12:00)
[2018-02-09] MEDS ORDERED: ONDANSETRON HCL 4 MG/2 ML VIAL IV PUSH ONE (12:00)
[2018-02-09] MEDS ORDERED: ERGOCALCIFEROL (VIT D2) 50,000 UNIT CAP PO SCH (12:00)
[2018-02-09] MEDS ORDERED: DEXAMETHASONE SOD PHOS 4 MG/ML VIAL IV ONE (12:00)
[2018-02-09] MEDS: LACTATED RINGER'S 1000 ML INJ 1,000 ML IV SCH ×2 (12:00→23:42)
--- NOTE | 2018-02-09 15:11 | RADRPT ---
EXAM DATE: 02/09/2018 3:03 PM EDT AGE/SEX: 72 years / Female INDICATIONS: ORIF left distal femur fracture. CLINICAL DATA: This is the patient's subsequent encounter. Patient reports that signs and symptoms h ave been present for 3 days and indicates a pain score of Nonresponsive. MEDICAL/SURGICAL HISTORY: . Unobtainable. . Unobtainable. COMPARISON: [facility], KNEE LEFT LTD (1 OR 2VWS), 02/07/2018. . FINDINGS: Interval plate and screw fixation of distal left femoral fracture. Hardware is well positioned. There is near-anatomic alignment of the fracture fragments. Again, the fracture extends through the articu lar surface. CONCLUSION: 1. Status post distal left femoral ORIF, as above. Electronically signed by: Hal Aguirre MD 02/09/2018 3:10 PM EDT
--- NOTE | 2018-02-09 15:38 | HHI.PR ---
Subjective Remarks Pain controlled. Doing crossword puzzles. Objective Vitals Vital Signs Date Time Temp Pulse Resp B/P (MAP) Pulse Ox O2 Delivery O2 Flow Rate FiO2 02/09/18 11:30 97.2 89 18 134/85 (101) 97 02/09/18 11:00 97.3 86 12 155/77 (103) 95 Nasal Cannula 2 02/09/18 10:45 90 15 164/83 (110) 100 02/09/18 10:30 92 8 162/86 (111) 99 Nasal Cannula 2 02/09/18 10:18 97.3 93 15 177/81 (113) 99 Nasal Cannula 2 02/09/18 04:02 97.6 66 18 128/58 (81) 97 02/09/18 00:19 97.9 84 18 143/62 (89) 94 02/08/18 19:49 98.3 84 17 136/59 (84) 98 02/08/18 16:12 97.6 73 18 110/55 (73) 95 I/O 02/08/18 02/08/18 02/08/18 02/09/18 02/09/18 02/09/18 07:00 15:00 23:00 07:00 15:00 23:00 Intake Total 480 ml 600 ml 240 ml 1000 ml Output Total 550 ml 400 ml 400 ml 250 ml Balance -70 ml 200 ml -160 ml 750 ml Intake Oral 480 ml 600 ml 240 ml Other 1000 ml Output Urine Total 550 ml 400 ml 400 ml 200 ml Estimated Blood Loss 50 ml # Bowel Movements 5 5 3 Result Diagram: 02/08/18 0617 02/08/18 0610 Other Results Item Value Date Time Bedside Blood Glucose 204 mg/dl 02/09/18 1203 Bedside Blood Glucose 166 mg/dl 02/09/18 1052 Bedside Blood Glucose 134 mg/dl 02/09/18 0643 Objective Remarks GENERAL: This is a well-nourished, well-developed patient, in no apparent distress. HEENT: Periorbital ecchymosis CARDIOVASCULAR: Regular rate and rhythm RESPIRATORY: Clear to auscultation. Breath sounds equal bilaterally. No wheezes , rales, or rhonchi. MUSCULOSKELETAL: Left lower extremity in immobilizer bandage clean dry intact NEURO: Alert & Oriented x4 to person, place, time, situation. Nonfocal A/P Problem List: (1) Fracture, femur, distal ICD Code: S72.409A - Unspecified fracture of lower end of unspecified femur, initial encounter for closed fracture Status: Acute (2) Periorbital hematoma of right eye ICD Code: H05.231 - Hemorrhage of right orbit Status: Acute (3) Diabetes mellitus, type II ICD Code: E11.9 - Type 2 diabetes mellitus without complications Status: Chronic Assessment and Plan 72-year-old female with Fracture, femur, distal status postoperative ORIF with Dr. Acosta Continue postoperative care, pain control, physical therapy Right hand swelling and pain. Follow-up x-ray showed no fracture Periorbital hematoma of right eye. Symptomatic treatment Acute superimposed on chronic kidney disease stage III. Improving Gentle IV fluid hydration, and avoid all nephrotoxic drug. Monitor BUN and creatinine Diabetes type 2 Resume oral hypoglycemic agents, Januvia and metformin Continue insulin sliding scale with fingerstick blood glucose monitoring Hyperlipidemia on statin DVT prophylaxis: Lovenox Discharge Planning SNF placement when cleared by Ortho Problem Qualifiers (1) Fracture, femur, distal: Qualified Codes: S72.402A - Unspecified fracture of lower end of left femur, initial encounter for closed fracture Gina Vargas MD February 09, 2018 15:38
[2018-02-09 16:00] VITALS: BP 123/58; PULSE 72; RESP 16; TEMP 98.1; O2SAT 98
[2018-02-09] MEDS: ceFAZolin 2 GM PREMIX 50 ML IV SCH (17:51)
[2018-02-09] MEDS: metFORMIN HCL 500 MG TAB PO SCH (17:51)
[2018-02-09] MEDS ORDERED: CETI10 (18:01)
[2018-02-09 19:24] VITALS: BP 134/71; PULSE 78; RESP 19; TEMP 97.4; O2SAT 94
[2018-02-09] MEDS ORDERED: PANT40TA3 PO (20:13)
[2018-02-09] MEDS ORDERED: MONT10TA2 PO (20:13)
[2018-02-09] MEDS ORDERED: ANTI2TAB10 PO (20:13)
[2018-02-09] MEDS ORDERED: ASCO500T PO (20:14)
[2018-02-09] MEDS ORDERED: MULTTAB67 PO (20:15)
[2018-02-09] MEDS ORDERED: OMEGCAP PO (20:16)
[2018-02-09] MEDS ORDERED: GABA100C4 PO (20:17)
[2018-02-09] MEDS ORDERED: EXENINJ SQ (20:18)
[2018-02-09] MEDS: VANCOMYCIN INJ 1,000 MG in SODIUM CHLOR 0.9% 250 ML INJ 250 ML IV SCH (20:51)
[2018-02-09 23:14] VITALS: BP 140/67; PULSE 76; RESP 18; TEMP 98.4; O2SAT 96
[2018-02-09] MEDS: DIPHENOXYLATE/ATROPINE 2.5 MG/0.025 MG TAB PO PRN (23:47)
[2018-02-10] MEDS: ceFAZolin 2 GM PREMIX 50 ML IV SCH (01:26)
[2018-02-10] MEDS: SODIUM CHLORIDE 0.9% FLUSH 10 ML FLUSH IV FLUSH PRN ×2 (01:27→05:29)
[2018-02-10 05:39] VITALS: BP 143/68; PULSE 77; RESP 18; TEMP 98.4; O2SAT 98
--- NOTE | 2018-02-10 06:33 | PD.ORT.PN ---
Subjective Subjective Remarks POD 1 s/p ORIF left distal femur doing well. pain controlled. states knee is doing well. reports significantly upset stomach when Abx were started. patient worries they are causing GI issues Objective Vitals Vital Signs Date Time Temp Pulse Resp B/P (MAP) Pulse Ox O2 Delivery O2 Flow Rate FiO2 02/10/18 05:39 98.4 77 18 143/68 (93) 98 02/09/18 23:14 98.4 76 18 140/67 (91) 96 02/09/18 19:24 97.4 78 19 134/71 (92) 94 02/09/18 16:00 98.1 72 16 123/58 (79) 98 02/09/18 11:30 97.2 89 18 134/85 (101) 97 02/09/18 11:00 97.3 86 12 155/77 (103) 95 Nasal Cannula 2 02/09/18 10:45 90 15 164/83 (110) 100 02/09/18 10:30 92 8 162/86 (111) 99 Nasal Cannula 2 02/09/18 10:18 97.3 93 15 177/81 (113) 99 Nasal Cannula 2 I/O 02/09/18 02/09/18 02/09/18 02/10/18 02/10/18 02/10/18 07:00 15:00 23:00 07:00 15:00 23:00 Intake Total 240 ml 1000 ml 360 ml 480 ml Output Total 400 ml 250 ml 200 ml 350 ml Balance -160 ml 750 ml 160 ml 130 ml Intake Oral 240 ml 360 ml 480 ml Other 1000 ml Output Urine Total 400 ml 200 ml 200 ml 350 ml Estimated Blood Loss 50 ml # Bowel Movements 3 12 Result Diagram: 02/08/18 0617 02/08/18 0610 Imaging Last 72 hours Impressions Hand X-Ray 02/08/18 0000 Signed Impressions: CONCLUSION: No acute fracture Maxillofacial CT 02/07/18 0000 Signed Impressions: CONCLUSION: 1. Right periorbital soft tissue swelling. No fractures. Lower Extremity CT 02/07/18 0000 Signed Impressions: CONCLUSION: 1. Acute distal femoral fracture as detailed above. Knee X-Ray 02/07/18 0000 Signed Impressions: CONCLUSION: Acute nondisplaced distal femoral fracture as detailed above. Intra-articular e xtension. Head CT 02/07/18 0000 Signed Impressions: CONCLUSION: 1. See the CT of the facial bones report separately. 2. No acute intracranial abnormality. Femur X-Ray 02/07/18 0000 Signed Impressions: CONCLUSION: Acute comminuted distal femoral fracture as detailed above. Objective Remarks LLE: +CKS. NVI distally. dressings clean and dry. intact. Assessment & Plan Assessment and Plan 1) Left Distal Femur Fx s/p ORIF - POD 1 -Dc Abx today due to stomach irritation -NWB -no quad sets/leg lifts -PROM of knee 0-90deg -daily dressing changes POD 2 -CM for rehab placement -f/u with Karla or PA in 2 weeks Ronal Kessler PA/[employer]ail [employer] Advisor PA February 10, 2018 06:33
[2018-02-10 08:00] VITALS: BP 131/62; PULSE 85; RESP 17; TEMP 97.8; O2SAT 97
[2018-02-10] MEDS: INSULIN ASPART SUPPLEMENTAL SCALE SQ SCH ×4 (08:00→21:00)
[2018-02-10 08:10] LABS: HEMATOCRIT 35.1 % (35.0-46.0); HEMOGLOBIN 11.8 GM/DL (11.6-15.3)
[2018-02-10] MEDS: VANCOMYCIN INJ 1,000 MG in SODIUM CHLOR 0.9% 250 ML INJ 250 ML IV SCH ×2 (08:13→19:41)
[2018-02-10] MEDS: CHOLECALCIFEROL (VIT D3) 1000 UNIT TAB PO SCH (08:14)
[2018-02-10] MEDS: metFORMIN HCL 500 MG TAB PO SCH ×2 (08:14→17:34)
[2018-02-10] MEDS: SODIUM CHLORIDE 0.9% FLUSH 10 ML FLUSH IV FLUSH SCH ×2 (08:15→19:41)
[2018-02-10] MEDS: CALCIUM/VITAMIN D 250 MG/125 U TAB PO SCH ×3 (08:15→17:34)
[2018-02-10] MEDS: ACETAMINOPHEN/HYDROcodone 325 MG/7.5 MG TAB PO PRN (08:16)
[2018-02-10] MEDS: ENOXAPARIN SODIUM 30 MG/0.3 ML SYRINGE SQ SCH (09:40)
[2018-02-10] MEDS ORDERED: ACETAMINOPHEN/HYDROcodone 325 MG/5 MG TAB PO PRN (11:15)
[2018-02-10] MEDS ORDERED: LORazepam 1 MG TAB PO PRN (11:15)
[2018-02-10] MEDS ORDERED: NALOXONE HCL 0.4 MG/ML AMP IV PUSH PRN (11:15)
[2018-02-10] MEDS ORDERED: DICYCLOMINE HCL 10 MG CAP PO ONE (11:15)
--- NOTE | 2018-02-10 11:33 | HHI.PR ---
Subjective Remarks Patient states that she had multiple episodes of loose stools along with abdominal cramping and fullness. Having some nausea and poor appetite. This happened when IV antibiotics was administered. Patient states that she has history of a J-pouch Objective Vitals Vital Signs Date Time Temp Pulse Resp B/P (MAP) Pulse Ox O2 Delivery O2 Flow Rate FiO2 02/10/18 08:00 97.8 85 17 131/62 (85) 97 02/10/18 05:39 98.4 77 18 143/68 (93) 98 02/09/18 23:14 98.4 76 18 140/67 (91) 96 02/09/18 19:24 97.4 78 19 134/71 (92) 94 02/09/18 16:00 98.1 72 16 123/58 (79) 98 02/09/18 11:30 97.2 89 18 134/85 (101) 97 I/O 02/09/18 02/09/18 02/09/18 02/10/18 02/10/18 02/10/18 07:00 15:00 23:00 07:00 15:00 23:00 Intake Total 240 ml 1000 ml 360 ml 480 ml Output Total 400 ml 250 ml 200 ml 350 ml Balance -160 ml 750 ml 160 ml 130 ml Intake Oral 240 ml 360 ml 480 ml Other 1000 ml Output Urine Total 400 ml 200 ml 200 ml 350 ml Estimated Blood Loss 50 ml # Bowel Movements 3 12 Result Diagram: 02/10/18 0730 02/08/18 0610 Other Results Item Value Date Time Bedside Blood Glucose 147 mg/dl 02/10/18 0800 Bedside Blood Glucose 160 mg/dl 02/09/182050 Objective Remarks GENERAL: This is a well-nourished, well-developed patient, in no apparent distress. HEENT: Periorbital ecchymosis CARDIOVASCULAR: Regular rate and rhythm RESPIRATORY: Clear to auscultation. Breath sounds equal bilaterally. No wheezes , rales, or rhonchi. Abdomen: Soft mild epigastric tenderness nondistended normoactive bowel sounds no guarding or rebound MUSCULOSKELETAL: Left lower extremity in immobilizer bandage clean dry intact NEURO: Alert & Oriented x4 to person, place, time, situation. Nonfocal A/P Problem List: (1) Fracture, femur, distal ICD Code: S72.409A - Unspecified fracture of lower end of unspecified femur, initial encounter for closed fracture Status: Acute (2) Periorbital hematoma of right eye ICD Code: H05.231 - Hemorrhage of right orbit Status: Acute (3) Diabetes mellitus, type II ICD Code: E11.9 - Type 2 diabetes mellitus without complications Status: Chronic Assessment and Plan 72-year-old female with Fracture, femur, distal status postoperative operative day #1 ORIF left distal femur with Dr. Acosta Continue postoperative care, pain control, physical therapy Abdominal cramps and loose stools-antibiotics postoperatively has been discontinued. Bentyl as needed. Initiate Lactinex continue supportive care. C. difficile currently pending Right hand swelling and pain. Follow-up x-ray showed no fracture Periorbital hematoma of right eye. Symptomatic treatment Acute superimposed on chronic kidney disease stage III. Improving Gentle IV fluid hydration, and avoid all nephrotoxic drug. Monitor BUN and creatinine Diabetes type 2, overall fair controlled Resume oral hypoglycemic agents, Januvia and metformin Continue insulin sliding scale with fingerstick blood glucose monitoring Hyperlipidemia on statin DVT prophylaxis: Lovenox Discharge Planning SNF placement when cleared by Ortho Problem Qualifiers (1) Fracture, femur, distal: Qualified Codes: S72.402A - Unspecified fracture of lower end of left femur, initial encounter for closed fracture Gina Vargas MD February 10, 2018 11:33
[2018-02-10 12:00] VITALS: BP 138/65; PULSE 87; RESP 17; TEMP 97.9; O2SAT 95
[2018-02-10] MEDS: LACTOBACILLUS ACIDOPHILUS TAB PO SCH ×2 (12:03→19:39)
[2018-02-10] MEDS: ACETAMINOPHEN/HYDROcodone 325 MG/10 MG TAB PO PRN ×3 (12:11→23:00)
[2018-02-10] MEDS: LACTATED RINGER'S 1000 ML INJ 1,000 ML IV SCH ×2 (13:00→22:51)
[2018-02-10 16:00] VITALS: BP 134/63; PULSE 90; RESP 16; TEMP 97.9; O2SAT 97
[2018-02-10] MEDS: DICYCLOMINE HCL 10 MG CAP PO PRN ×2 (17:34→23:00)
[2018-02-10 20:00] VITALS: BP 147/73; PULSE 92; RESP 18; TEMP 98.2; O2SAT 94
[2018-02-10] MEDS: DIPHENOXYLATE/ATROPINE 2.5 MG/0.025 MG TAB PO PRN (23:00)
[2018-02-11 00:55] VITALS: BP 138/63; PULSE 76; RESP 18; TEMP 98; O2SAT 96
--- NOTE | 2018-02-11 06:42 | PD.ORT.PN ---
Subjective Subjective Remarks POD 2 s/p ORIF left distal femur doing well. pain controlled. states knee is doing well. Objective Vitals Vital Signs Date Time Temp Pulse Resp B/P (MAP) Pulse Ox O2 Delivery O2 Flow Rate FiO2 02/11/18 00:55 98.0 76 18 138/63 (88) 96 02/10/18 20:00 98.2 92 18 147/73 (97) 94 02/10/18 16:00 97.9 90 16 134/63 (86) 97 02/10/18 12:00 97.9 87 17 138/65 (89) 95 02/10/18 08:00 97.8 85 17 131/62 (85) 97 I/O 02/10/18 02/10/18 02/10/18 02/11/18 02/11/18 02/11/18 07:00 15:00 23:00 07:00 15:00 23:00 Intake Total 480 ml 250 ml 1696 ml 480 ml Output Total 350 ml 500 ml 400 ml Balance 130 ml 250 ml 1196 ml 80 ml Intake Oral 480 ml 800 ml 480 ml IV Total 250 ml 896 ml Output Urine Total 350 ml 500 ml 400 ml # Bowel Movements 12 4 1 Result Diagram: 02/10/18 0730 02/08/18 0610 Imaging Last 72 hours Impressions Hand X-Ray 02/08/18 Signed Impressions: CONCLUSION: No acute fracture Maxillofacial CT 02/07/18 0000 Signed Impressions: CONCLUSION: 1. Right periorbital soft tissue swelling. No fractures. Lower Extremity CT 02/07/18 Signed Impressions: CONCLUSION: 1. Acute distal femoral fracture as detailed above. Knee X-Ray 02/07/18 0000 Signed Impressions: CONCLUSION: Acute nondisplaced distal femoral fracture as detailed above. Intra-articular e xtension. Head CT 02/07/18 0000 Signed Impressions: CONCLUSION: 1. See the CT of the facial bones report separately. 2. No acute intracranial abnormality. Femur X-Ray 02/07/18 0000 Signed Impressions: CONCLUSION: Acute comminuted distal femoral fracture as detailed above. Objective Remarks LLE: +CKS. NVI distally. dressings clean and dry. intact. Assessment & Plan Assessment and Plan 1) Left Distal Femur Fx s/p ORIF - POD 2 -NWB -no quad sets/leg lifts -PROM of knee 0-90deg -daily dressing changes POD 2 -CM for rehab placement -f/u with Karla or PA in 2 weeks Ronal Kessler/Carver Hand PA February 11, 2018 06:42
[2018-02-11] MEDS: LACTOBACILLUS ACIDOPHILUS TAB PO SCH (07:38)
[2018-02-11] MEDS: ENOXAPARIN SODIUM 30 MG/0.3 ML SYRINGE SQ SCH (07:38)
[2018-02-11] MEDS: ACETAMINOPHEN/HYDROcodone 325 MG/10 MG TAB PO PRN ×2 (07:38→16:14)
[2018-02-11] MEDS: DICYCLOMINE HCL 10 MG CAP PO PRN ×2 (07:39→16:14)
[2018-02-11] MEDS: SODIUM CHLORIDE 0.9% FLUSH 10 ML FLUSH IV FLUSH SCH (07:39)
[2018-02-11] MEDS: CHOLECALCIFEROL (VIT D3) 1000 UNIT TAB PO SCH (07:39)
[2018-02-11] MEDS: DIPHENOXYLATE/ATROPINE 2.5 MG/0.025 MG TAB PO PRN ×2 (07:39→16:14)
[2018-02-11] MEDS: INSULIN ASPART SUPPLEMENTAL SCALE SQ SCH ×2 (07:39→11:00)
[2018-02-11] MEDS: CALCIUM/VITAMIN D 250 MG/125 U TAB PO SCH ×2 (07:39→12:32)
[2018-02-11] MEDS: metFORMIN HCL 500 MG TAB PO SCH (07:39)
[2018-02-11 08:00] VITALS: BP 126/60; PULSE 99; RESP 20; TEMP 98.3; O2SAT 97
--- NOTE | 2018-02-11 11:33 | HHI.PR ---
Subjective Remarks Follow-up visit femur fracture status post left distal femur ORIF, loose stools , CKD 3, DM. Patient seen and examined today sitting in a chair. Reports she is doing better. States that after to have stopped IV antibiotics she did not have any more diarrhea. States she has a J-pouch before and she usually has diarrhea but antibiotics has been worsening the case. States that abdominal pain and cramping has also resolved including abdominal distention after being off the antibiotics. Denies pain and discomfort. Denies SOB/ dyspnea. Denies chest pain, palpitations, headaches, dizziness. Denies fevers, chills, n/v/d. Denies dysuria. Objective Vitals Vital Signs Date Time Temp Pulse Resp B/P (MAP) Pulse Ox O2 Delivery O2 Flow Rate FiO2 02/11/18 08:00 98.3 99 20 126/60 (82) 97 02/11/18 00:55 98.0 76 18 138/63 (88) 96 02/10/18 20:00 98.2 92 18 147/73 (97) 94 02/10/18 16:00 97.9 90 16 134/63 (86) 97 02/10/18 12:00 97.9 87 17 138/65 (89) 95 I/O 02/10/18 02/10/18 02/10/18 02/11/18 02/11/18 02/11/18 07:00 15:00 23:00 07:00 15:00 23:00 Intake Total 480 ml 250 ml 1696 ml 480 ml Output Total 350 ml 500 ml 400 ml Balance 130 ml 250 ml 1196 ml 80 ml Intake Oral 480 ml 800 ml 480 ml IV Total 250 ml 896 ml Output Urine Total 350 ml 500 ml 400 ml # Bowel Movements 12 4 1 Result Diagram: 02/10/18 0730 02/08/18 0610 Imaging Last Impressions Knee X-Ray 02/09/18 0000 Signed Impressions: CONCLUSION: 1. Status post distal left femoral ORIF, as above. Hand X-Ray 02/08/18 0000 Signed Impressions: CONCLUSION: No acute fracture Maxillofacial CT 02/07/18 0000 Signed Impressions: CONCLUSION: 1. Right periorbital soft tissue swelling. No fractures. Lower Extremity CT 02/07/18 0000 Signed Impressions: CONCLUSION: 1. Acute distal femoral fracture as detailed above. Head CT 02/07/18 Signed Impressions: CONCLUSION: 1. See the CT of the facial bones report separately. 2. No acute intracranial abnormality. Femur X-Ray 02/07/18 Signed Impressions: CONCLUSION: Acute comminuted distal femoral fracture as detailed above. Objective Remarks GENERAL: This is a well-nourished, well-developed patient, in no apparent distress. SKIN: Warm and dry. Periorbital ecchymosis right eye HEENT: Normocephalic. Pupils equal round and reactive. Nose without bleeding. Airway patent. NECK: Trachea midline. CARDIOVASCULAR: Regular rate and rhythm without murmurs, gallops, or rubs. RESPIRATORY: Clear to auscultation. Breath sounds equal bilaterally. No wheezes , rales, or rhonchi. GASTROINTESTINAL: Abdomen soft, non-tender, nondistended. Bowel Sounds normoactive x4. MUSCULOSKELETAL: Extremities without clubbing, cyanosis. Left lower extremity + 1 edema, immobilizer in place. Palpable pulses. NEUROLOGICAL: Awake and alert. Oriented to time, place, person. No focal neuro deficit. Normal speech. Procedures Status post ORIF left distal femur A/P Problem List: (1) Fracture, femur, distal ICD Code: S72.409A - Unspecified fracture of lower end of unspecified femur, initial encounter for closed fracture Status: Acute (2) Periorbital hematoma of right eye ICD Code: H05.231 - Hemorrhage of right orbit Status: Acute (3) Diabetes mellitus, type II ICD Code: E11.9 - Type 2 diabetes mellitus without complications Status: Chronic Assessment and Plan 72-year-old female with past medical history of diabetes type 2, chronic kidney disease was brought to the ED for evaluation of left knee pain status post mechanical fall. Fracture, femur, distal status postoperative operative day #2 ORIF left distal femur with Dr. Acosta Continue postoperative care, pain control, physical therapy Abdominal cramps and loose stools -antibiotics postoperatively has been discontinued. -Bentyl as needed. Initiate Lactinex continue supportive care. -C. difficile negative. History of J-pouch -Off antibiotic improved symptomatology Right hand swelling and pain. -Follow-up x-ray showed no fracture -Elevate as needed Periorbital hematoma of right eye. -Symptomatic treatment -Cold compresses Acute superimposed on chronic kidney disease stage III. Improving -Gentle IV fluid hydration, and avoid all nephrotoxic drug. -Monitor BUN and creatinine -Improved Diabetes type 2, overall fairly controlled -Resume oral hypoglycemic agents, Januvia and metformin -Continue insulin sliding scale with fingerstick blood glucose monitoring Hyperlipidemia on statin DVT prophylaxis: Lovenox Discharge Planning Plan to discharge to SNF when cleared by Orth Problem Qualifiers (1) Fracture, femur, distal: Qualified Codes: S72.402A - Unspecified fracture of lower end of left femur, initial encounter for closed fracture Chantell Roper February 11, 2018 11:33
--- NOTE | 2018-02-11 11:34 | HHI.DCPOC ---
Discharge Care Plan Diagnosis: (1) Periorbital hematoma of right eye (2) Fracture, femur, distal (3) Diabetes mellitus, type II Your Health Problems Are: Difficulty with ADL Inflammation Swelling Leg Swelling Goals to Promote Your Health * To prevent worsening of your condition and complications * To maintain your health at the optimal level Directions to Meet Your Goals Take your medications as prescribed Follow your dietary instruction Follow activity as directed Keep your appointments as scheduled Take your immunizations and boosters as scheduled If your symptoms worsen call your PCP, if no PCP go to Urgent Care Center or Emergency Room Smoking is Dangerous to Your Health. Avoid second hand smoke Call the 24-hour hour crisis hotline for domestic abuse at Chantell Roper February 11, 2018 11:34
--- NOTE | 2018-02-11 11:35 | HHI.DS ---
Discharge Summary Admission Date February 07, 2018 at 16:06 Discharge Date: February 11, 2018 Admitting Diagnosis Left distal femur with intra-articular involvement (1) Fracture, femur, distal ICD Code: S72.409A - Unspecified fracture of lower end of unspecified femur, initial encounter for closed fracture Status: Acute (2) Periorbital hematoma of right eye ICD Code: H05.231 - Hemorrhage of right orbit Status: Acute (3) Diabetes mellitus, type II ICD Code: E11.9 - Type 2 diabetes mellitus without complications Status: Chronic Procedures Status post ORIF left distal femur Brief History - From Admission 72-year-old female with past medical history of diabetes type 2, chronic kidney disease was brought to the ED for evaluation of left knee pain status post mechanical fall. Patient states, earlier this morning around 5:30 AM as she was making her morning walk she tripped and fell on asphalt l landing on her left knee and in the process hitting her right knee as well as the right side of her face including the right eye without any head trauma or loss of consciousness. Patient states, she immediately felt severe left knee pain which was rated over 10 in intensity and was unable to stand up and walk back into her house. She had to crawl. She reported that initially she did not have any swelling to that left knee. Over the course of several hours she started noticing swelling of her left knee with severe throbbing pain, for which she is taking several ibuprofen. She was then taken to the ED around 12 PM where imaging study revealed acute distal femoral fracture. CBC/BMP: 02/10/18 0730 02/08/18 0610 Significant Findings Laboratory Tests Test 02/10/18 06:05 02/10/18 07:30 Imaging Last Impressions Knee X-Ray 02/09/18 0000 Signed Impressions: CONCLUSION: 1. Status post distal left femoral ORIF, as above. Hand X-Ray 02/08/18 0000 Signed Impressions: CONCLUSION: No acute fracture Maxillofacial CT 02/07/18 0000 Signed Impressions: CONCLUSION: 1. Right periorbital soft tissue swelling. No fractures. Lower Extremity CT 5/27/18 0000 Signed Impressions: CONCLUSION: 1. Acute distal femoral fracture as detailed above. Head CT 02/07/18 Signed Impressions: CONCLUSION: 1. See the CT of the facial bones report separately. 2. No acute intracranial abnormality. Femur X-Ray 02/07/18 Signed Impressions: CONCLUSION: Acute comminuted distal femoral fracture as detailed above. PE at Discharge GENERAL: This is a well-nourished, well-developed patient, in no apparent distress. SKIN: Warm and dry. Periorbital ecchymosis right eye HEENT: Normocephalic. Pupils equal round and reactive. Nose without bleeding. Airway patent. NECK: Trachea midline. CARDIOVASCULAR: Regular rate and rhythm without murmurs, gallops, or rubs. RESPIRATORY: Clear to auscultation. Breath sounds equal bilaterally. No wheezes , rales, or rhonchi. GASTROINTESTINAL: Abdomen soft, non-tender, nondistended. Bowel Sounds normoactive x4. MUSCULOSKELETAL: Extremities without clubbing, cyanosis. Left lower extremity + 1 edema, immobilizer in place. Palpable pulses. NEUROLOGICAL: Awake and alert. Oriented to time, place, person. No focal neuro deficit. Normal speech. Pt update on day of discharge Follow-up visit femur fracture status post left distal femur ORIF, loose stools , CKD 3, DM. Patient seen and examined today sitting in a chair. Reports she is doing better. States that after to have stopped IV antibiotics she did not have any more diarrhea. States she has a J-pouch before and she usually has diarrhea but antibiotics has been worsening the case. States that abdominal pain and cramping has also resolved including abdominal distention after being off the antibiotics. Denies pain and discomfort. Denies SOB/ dyspnea. Denies chest pain, palpitations, headaches, dizziness. Denies fevers, chills, n/v/d. Denies dysuria. Hospital Course Patient is a 72-year-old Female with past medical history of diabetes type 2, chronic kidney disease was brought to the ED for evaluation of left knee pain status post mechanical fall. He was found to have fractured femur, distal. Patient underwent ORIF of the distal femur with Dr. Acosta. Her hospitalization was complicated with abdominal cramps and loose stools secondary to antibiotic use postoperatively. C. difficile was negative. Patient has history of J-pouch. Off antibiotic improved symptomatology. She also has some right hand swelling and pain were and follow-up x-ray showed no fracture. Periorbital hematoma of the right eye with symptomatic treatment. Patient has acute on chronic kidney disease stage III where she was given gentle IV fluid hydration and her BUN and creatinine ratio has improved. Her diabetes was managed with oral hypoglycemic Januvia and metformin including insulin sliding scale while she was at the hospital. She was cleared by orthopedic to go to [facility] facility for continued rehabilitation. Patient has a Bowman catheter secondary to nonweightbearing status postop. May discontinue at rehab center with bladder programs. Patient has met maximal benefits of hospitalization. Clinically stable for discharge. Follow-up with PCP and outpatient and also with orthopedic surgeon. Pt Condition on Discharge: Stable Discharge Disposition: Discharge to SNF Discharge Time: > 30 minutes Discharge Instructions DIET: Follow Instructions for: Diabetic Diet Activities you can perform: Non Weight Bearing Activities to Avoid: Weight Bearing, Driving Other Activity Instructions: -NWB -no quad sets/leg lifts -PROM of knee 0-90deg -daily dressing changes Follow up Referrals: Orthopedics - 2 Weeks @ [facility] with Gallito Acosta MD PCP Follow-up - 2-3 Days New Medications: Calcium Carbonate-Vitamin D (Calcium 600+D 200) 600-200 Mg-Unit Tab 1 TAB PO BID for Nutritional Supplement, #60 TAB 0 Refills Cholecalciferol (Vitamin D3) 2,000 Unit Cap 2000 UNITS PO DAILY for Nutritional Supplement, #60 CAP 0 Refills Ergocalciferol (Ergocalciferol) 50,000 Unit Cap 86871 UNITS PO Q7D for Nutritional Supplement, #8 CAP Hydrocodone-Acetaminophen (Hydrocodone-Acetaminophen) 7.5 Mg-325 Mg Tab 1 TAB PO Q4H PRN for PAIN, #60 TAB 0 Refills Rivaroxaban (Xarelto) 10 Mg Tab 10 MG PO DAILY for Blood Clot Prevention, #14 TAB 0 Refills Walker/Adult/Folding (Walker/Adult/Folding) 1 Mis Mis EA .XX DIRECTED, #1 0 Refills Wheelchair Elevated Leg (Wheelchair Elevated Leg) 1 Mis Mis EA .XX DIRECTED, #1 0 Refills Dicyclomine (Bentyl) 10 Mg Cap 20 MG PO QID PRN for adominal cramps, #12 CAP Enoxaparin Inj (Lovenox Inj) 30 Mg/0.3 Ml Syr 30 MG SQ Q24H for Blood Clot Prevention, #6 INJECTION Hydrocodone/Acetaminophen (Hydrocodone-Acetamin 5-325 mg) 5 Mg-325 Mg Tablet 1 TAB PO Q4H PRN for PAIN SCALE 3 TO 5, #6 TAB Hydrocodone/Acetaminophen (Hydrocodone-Acetamin 10-325 mg) 10 Mg-325 Mg Tablet 1 TAB PO Q4H PRN for PAIN SCALE 6 TO 10, #6 TAB Lactobacillus Acidophilus (Acidophilus/l-Sporogenes) 35 Million Cell-25 Million Cell Tab 1 TAB PO Q12HR for Diarrhea, #14 TAB Continued Medications: Ascorbic Acid (Ascorbic Acid) 500 Mg Tab 500 MG PO DAILY, TAB Cetirizine (Cetirizine) 10 Mg Tab 10 MG DAILY for Allergies, TAB 0 Refills Dulaglutide Inj (Trulicity Inj) 0.75 Mg/0.5 Ml Pen 0.75 MG SQ Q7D for Blood Sugar Management, #4 PEN 0 Refills Exenatide Inj (Bydureon Inj) 2 Mg Vial 2 MG SQ Q7D for Blood Sugar Management, #4 INJECTION 0 Refills Fish Oil-Cholecalciferol (Weldon-3 Fish Oil/Vitamin) 1,000-1,000 Mg Cap 1 CAP PO DAILY for Nutritional Supplement, CAP 0 Refills Gabapentin (Gabapentin) 100 Mg Cap 100 MG PO DAILY, #60 CAP 0 Refills Loperamide (Anti-Diarrheal) 2 Mg Tab 2 MG PO DIRECTED PRN for DIARRHEA, TAB 0 Refills Take 4 mg after 1st loose stool, then take 2 mg after each subsequent stool. Max 8 mg/day. Metformin (Metformin) 1,000 Mg Tab 1000 MG PO BIDPC for Blood Sugar Management, #60 TAB 0 Refills Montelukast (Singulair) 10 Mg Tab 10 MG PO DAILY PRN for prn, #30 TAB 0 Refills Multiple Vitamin (Multiple Vitamin) 1 Tab 1 TAB PO DAILY for Nutritional Supplement, TAB 0 Refills Pantoprazole (Pantoprazole) 40 Mg Tab 40 MG PO DAILY for Reflux, #30 TAB 0 Refills Sitagliptin (Januvia) 25 Mg Tab 25 MG PO DAILY for Blood Sugar Management, #30 TAB 0 Refills Chantell Roper February 11, 2018 11:35 am
[2018-02-11] MEDS ORDERED: LACT PO (11:38)
[2018-02-11] MEDS ORDERED: ENOX30P SQ (11:38)
[2018-02-11] MEDS ORDERED: HYDR-3583 PO (11:38)
[2018-02-11] MEDS ORDERED: DICY10 PO (11:38)
[2018-02-11] MEDS ORDERED: HYDR-3516 PO (11:38)
[2018-02-11 12:00] VITALS: BP 124/60; PULSE 85; RESP 18; TEMP 97.8; O2SAT 95
[2018-02-11] MEDS: LACTATED RINGER'S 1000 ML INJ 1,000 ML IV SCH (13:39)
[2018-02-11 16:00] VITALS: BP 112/59; PULSE 88; RESP 18; TEMP 98.1; O2SAT 98
== END 2018-02-11 17:46 | DRG 482 ==
LOC: PHED 13:08 → PHEDA 16:06 → N06A 18:43
PROVIDERS: ADMIT Hospitalist; ATTEND Hospitalist
PROC: 0QSC04Z Reposition Left Lower Femur with Internal Fixation Device, Open Approach (ICD-10-PCS; principal; 2018-02-09 08:42)
DX: S72.422A Displaced fracture of lateral condyle of left femur, initial encounter for closed fracture (principal); E11.22 Type 2 diabetes mellitus with diabetic chronic kidney disease; N18.3 Chronic kidney disease, stage 3 (moderate); S00.10XA Contusion of unspecified eyelid and periocular area, initial encounter; W18.30XA Fall on same level, unspecified, initial encounter; Y93.01 Activity, walking, marching and hiking; Z79.84 Long term (current) use of oral hypoglycemic drugs; N28.9 Disorder of kidney and ureter, unspecified; E78.5 Hyperlipidemia, unspecified; F40.240 Claustrophobia; Z96.1 Presence of intraocular lens; M79.641 Pain in right hand; R10.9 Unspecified abdominal pain
CPT/HCPCS: 70450; 70486; 73130; 73552; 73560; 73700; 76000; 80048; 80053; 82652; 82948; 85014; 85018; 85025; 85610; 85730; 86077; 86850; 86870; 86900; 86901; 86902; 86920; 86922; 87493; 93005; 94150; C1713; J0690; J1100; J1580; J1650; J1815; J2175; J2250; J2270; J2405; J3010; J3370; J7030; J7050; J7120; L1830